=== PATIENT | female | born 1945 | race Caucasian/White ===

== ENCOUNTER → 2017-08-25 | Outpatient (CLI) | payer MEDICARE, OTHER ==
[~2017-08-25] MED LIST: CARBIDOPA AND L1 OD1 PO; GABAPENTIN 400400 MG PO; HYZAAR1 TAB PO; MELOXICAM7.5 MG PO; METFORMIN1000 MG PO; NOVOLIN 70/30 710 ML SC; OMEPRAZOLE40 MG PO; PRAMIPEXOLE DI1.5 MG PO; SYNTHROID0.112 MG PO; XYZAL5 MG PO; ZOCOR40 MG PO
[2017-08-25 13:39] LABS: BUN 17 mg/dL (7-18)
[2017-08-25 13:51] LABS: GFR (ESTIMATED) 55 ML/MIN (59-)
[2017-08-25 14:01] LABS: HEMOGLOBIN 11.6 g/dL (12.2-16.2); LYMPH % 31.4 % (10-50.0)
== END ==
LOC: CARL-LAB 07:43
PROVIDERS: Internal Medicine Adolescent Medicine
DX: E78.5 Hyperlipidemia, unspecified (principal); E11.42 Type 2 diabetes mellitus with diabetic polyneuropathy; E03.9 Hypothyroidism, unspecified; G20 Parkinson's disease; G47.34 Idiopathic sleep related nonobstructive alveolar hypoventilation

== ENCOUNTER → 2017-10-20 | Outpatient (CLI) | payer MEDICARE, OTHER ==
--- NOTE | 2017-10-21 08:14 | RADIOLOGY REPORT PS360 ---
DEXA SCAN.-BONE DENSITY STUDY HIPS AND LUMBAR SPINE HISTORY: Postmenopausal female 72-year-old postmenopausal female. Hypothyroidism. Low calcium intake. Taking Synthroid TECHNIQUE: DEXA scan hip and lumbar spine The most complete data summary and color graphic presentation of the today's ( and any prior ) DEXA findings are available in PACS. Definition and treatment guidelines included. COMPARISON: None listed LUMBAR SPINE: Normal bone densityat all levels L1 vertebral body demonstrates the lowest T score -0.9 with BMD1.026 g/cm sq Overall mean lumbar L1-L4 T score 0.6 with BMD1.249 g/cm sq . . HIPS: Osteopenia femoral necks Femoral neck density is best predictor of hip fracture risk . Left femoral neck demonstrates the lowest T score -1.4 with BMD0.838 g/cm sq . Right femoral neck T score -1.2 with BMD 0.865 Averaging hips bilaterally yields Hip Mean T score 0.0 with BMD1.01 g/cm sq ... IMPRESSION 1. LUMBAR SPINE: Normal bone density at all levels. 2. HIPS: Early Osteopenia at femoral necks. Left femoral neck T score = -1.4. Right femoral neck T score = -1.2. Overall bone density all regions hips is normal with T score = 0.0 WHO criteria for post-menopausal, Women: Normal: T-score at or above -1 SD Osteopenia: T-score between -1 and -2.5 SD Osteoporosis: T-score at or below -2.5 SD
== END ==
LOC: RAD 09:53
DX: Z78.0 Asymptomatic menopausal state (principal); Z13.820 Encounter for screening for osteoporosis